=== PATIENT | female | born 1980 | race Caucasian/White ===

== ENCOUNTER 2017-08-12 09:02 | Day surgery (SDC) | payer MEDICAID ==
[~2017-08-12] VITALS: Ht 157.5 cm; Wt 65.8 kg
[~2017-08-12 09:02] MED LIST: ACET250T2 PO; ALBU18HF INH; AZO YEAST PLUS PO; BUSP15TA PO; CYCL-259 PO; DIAZ5TAB4 PO; ESCI20TA10 PO; FURO40TA6 PO; GABA300C10 PO; GLUC500C2 PO; HYDR50TA13 PO; IRON1TAB29 PO; KETO200T41 PO; LIDO700A5 TD; LORA2TAB PO; LYSI500T3 PO; MAGN100T6 PO; NORT10CA PO; OXYC15TA PO; POTA10TA5 PO; POTA20TA89 PO; PROM25TA10 PO; SUMA100T4 PO; VERA80TA2 PO; phenergan PO
[2017-08-12] MEDS ORDERED: DICY10CA3 PO (09:48)
[2017-08-12] MEDS ORDERED: ACET500C15 PO (09:48)
[2017-08-12] MEDS ORDERED: HYOS0.1268 PO (09:48)
[2017-08-12] MEDS ORDERED: NORT50CA PO (09:48)
[2017-08-12 09:57] VITALS: BP 119/83
[2017-08-12] MEDS ORDERED: LACTATED RINGERS 1,000 ML IV SCH (10:11)
[2017-08-12] MEDS ORDERED: ONDANSETRON 2MG/ML, 2ML IVPush PRN (11:00)
[2017-08-12] MEDS ORDERED: OXYcodone 5 MG/5 ML ORAL.SOL UDC PO PRN (11:00)
[2017-08-12] MEDS ORDERED: HYDROcodone/APAP 7.5-325MG/15ML UDC PO PRN (11:00)
[2017-08-12] MEDS ORDERED: ACETAMINOPHEN 325 MG TABLET PO PRN (11:00)
[2017-08-12] MEDS ORDERED: PROMETHAZINE 25 MG/ML, 1ML IV PRN (11:00)
[2017-08-12] MEDS ORDERED: HYDROmorphone 1 MG/ML, 1ML IV PRN (11:00)
[2017-08-12] MEDS ORDERED: MIDAZOLAM 1 MG/ML, 2ML IV PRN (11:00)
[2017-08-12] MEDS ORDERED: MIDAZOLAM 1 MG/ML, 2ML ONE (11:01)
[2017-08-12] MEDS ORDERED: DEXAMETHASONE 4 MG/ML, 1ML ONE (11:12)
[2017-08-12] MEDS ORDERED: ONDANSETRON 2MG/ML, 2ML ONE (11:12)
[2017-08-12] MEDS ORDERED: PROPOFOL 10 MG/ML, 20ML ONE (11:12)
[2017-08-12] MEDS ORDERED: PLEASE ENTER ALLERGIES MC SCH ×2 (11:30)
[2017-08-12] MEDS ORDERED: OXYcodone 5 MG/5 ML ORAL.SOL UDC ONE (11:42)
[2017-08-12] MEDS ORDERED: FENTANYL PF 100 MCG/2ML ONE ×2 (11:42→11:58)
[2017-08-12] MEDS: FENTANYL PF 100 MCG/2ML IV PRN ×4 (11:45→12:03)
== END 2017-08-12 13:00 ==
LOC: OUT 09:02
PROVIDERS: ATTEND Internal Medicine Gastroenterology
DX: K29.50 Unspecified chronic gastritis without bleeding (principal); G89.29 Other chronic pain
CPT/HCPCS: 43239; 88305; J1100; J2250; J2405; J2704; J3010; J7120